=== PATIENT | male | born 1985 ===

== ENCOUNTER → 2023-01-24 | Outpatient (REF) | payer SELFPAY ==
[2023-01-26 12:40] LABS: SEMEN APPEARANCE OPAQUE (OPAQUE); SEMEN VISCOSITY LIQUID (LIQUID); SEMEN VOLUME 1.7 ml (2.0-5.0); SEMEN pH 8.5 (7.0-8.0)
[2023-01-26 12:41] LABS: SPERM CONCENTRATION 138.9 M/ml (>=15.0); WBC CONCENTRATION <=1 M/ml (<=1 M/ml)
== END ==
LOC: M LAB REF 12:19
PROVIDERS: ATTEND Obstetrics & Gynecology
DX: N46.8 Other male infertility (principal)

== ENCOUNTER → 2023-04-14 | Outpatient (REF) | payer OTHER ==
[2023-04-14 09:38] LABS: SEMEN APPEARANCE OPAQUE (OPAQUE); SEMEN VISCOSITY LIQUID (LIQUID); WBC CONCENTRATION <=1 M/ml (<=1 M/ml)
== END ==
LOC: M LAB REF 09:03
PROVIDERS: ATTEND Obstetrics & Gynecology
DX: N46.8 Other male infertility (principal)

== ENCOUNTER → 2023-10-07 | Outpatient (REF) | payer OTHER | LOC: M LAB REF 11:52 | PROVIDERS: ATTEND Plastic Surgery Surgery of the Hand | DX: L72.0 Epidermal cyst (principal) ==